=== PATIENT | male | born 1965 | race Caucasian/White ===

== ENCOUNTER 2020-10-10 11:56 | Outpatient (REF) | payer OTHER, SELFPAY | END 2020-10-10 11:57 | disposition home or self-care (01) | LOC: HO.BBR 11:56 | PROVIDERS: Visit Provider Internal Medicine Gastroenterology | DX: Z13.89 Encounter for screening for other disorder (principal) ==

== ENCOUNTER 2020-11-08 11:03 | Outpatient (REF) | payer OTHER, SELFPAY | END 2020-11-08 11:04 | disposition home or self-care (01) | LOC: HO.BBR 11:03 | PROVIDERS: Visit Provider Internal Medicine Gastroenterology | DX: Z13.89 Encounter for screening for other disorder (principal) ==

== ENCOUNTER 2020-11-22 12:01 | Outpatient (REF) | payer OTHER, SELFPAY | END 2020-11-22 12:02 | disposition home or self-care (01) | LOC: HO.BBR 12:01 | PROVIDERS: Visit Provider Internal Medicine Gastroenterology | DX: Z13.89 Encounter for screening for other disorder (principal) ==

== ENCOUNTER 2020-12-06 12:05 | Outpatient (REF) | payer OTHER, SELFPAY | END 2020-12-06 12:06 | disposition home or self-care (01) | LOC: HO.BBR 12:05 | PROVIDERS: Visit Provider Internal Medicine Gastroenterology | DX: Z13.89 Encounter for screening for other disorder (principal) ==

== ENCOUNTER 2021-11-25 12:55 | Outpatient (REF) | payer OTHER, SELFPAY | END 2021-11-25 12:56 | disposition home or self-care (01) | LOC: HO.BBR 12:55 | PROVIDERS: Visit Provider Internal Medicine Gastroenterology | DX: Z13.89 Encounter for screening for other disorder (principal) ==

== ENCOUNTER 2021-12-09 13:04 | Outpatient (REF) | payer OTHER, SELFPAY | END 2021-12-09 13:05 | disposition home or self-care (01) | LOC: HO.BBR 13:04 | PROVIDERS: Visit Provider Internal Medicine Gastroenterology | DX: Z13.89 Encounter for screening for other disorder (principal) ==

== ENCOUNTER 2021-12-25 09:07 | Outpatient (REF) | payer OTHER, SELFPAY | END 2021-12-25 09:08 | disposition home or self-care (01) | LOC: HO.BBR 09:07 | PROVIDERS: Visit Provider Internal Medicine Gastroenterology | DX: Z13.89 Encounter for screening for other disorder (principal) ==

== ENCOUNTER 2022-01-23 08:50 | Outpatient (REF) | payer BC, SELFPAY | END 2022-01-23 08:51 | disposition home or self-care (01) | LOC: HO.BBR 08:50 | PROVIDERS: Visit Provider Internal Medicine Gastroenterology | DX: Z13.89 Encounter for screening for other disorder (principal) ==

== ENCOUNTER 2022-02-05 09:04 | Outpatient (REF) | payer BC, SELFPAY | END 2022-02-05 09:05 | disposition home or self-care (01) | LOC: HO.BBR 09:04 | PROVIDERS: Visit Provider Internal Medicine Gastroenterology | DX: Z13.89 Encounter for screening for other disorder (principal) ==

== ENCOUNTER 2022-03-05 09:55 | Outpatient (REF) | payer BC, SELFPAY | END 2022-03-05 09:56 | disposition home or self-care (01) | LOC: HO.BBR 09:55 | PROVIDERS: Visit Provider Internal Medicine Gastroenterology | DX: Z13.89 Encounter for screening for other disorder (principal) ==

== ENCOUNTER 2022-06-19 07:55 | Outpatient (REF) | payer BC, SELFPAY | END 2022-06-19 07:56 | disposition home or self-care (01) | LOC: HO.BBR 07:55 | PROVIDERS: Visit Provider Internal Medicine Gastroenterology | DX: Z13.89 Encounter for screening for other disorder (principal) ==

== ENCOUNTER 2022-09-03 08:01 | Outpatient (REF) | payer BC, SELFPAY | END 2022-09-03 08:02 | disposition home or self-care (01) | LOC: HO.BBR 08:01 | PROVIDERS: Visit Provider Internal Medicine Gastroenterology | DX: Z13.89 Encounter for screening for other disorder (principal) ==

== ENCOUNTER 2022-09-24 09:59 | Outpatient (REF) | payer BC, SELFPAY | END 2022-09-24 10:00 | disposition home or self-care (01) | LOC: HO.BBR 09:59 | PROVIDERS: Visit Provider Internal Medicine Gastroenterology | DX: Z13.89 Encounter for screening for other disorder (principal) ==

== ENCOUNTER 2023-03-05 13:55 | Outpatient (REF) | payer BC, SELFPAY | END 2023-03-05 13:56 | disposition home or self-care (01) | LOC: HO.BBR 13:55 | PROVIDERS: Visit Provider Internal Medicine | DX: Z13.89 Encounter for screening for other disorder (principal) ==

== ENCOUNTER 2023-04-07 07:59 | Outpatient (REF) | payer BC, SELFPAY | END 2023-04-07 08:00 | disposition home or self-care (01) | LOC: HO.BBR 07:59 | PROVIDERS: PCP Internal Medicine; Visit Provider Internal Medicine | DX: Z13.89 Encounter for screening for other disorder (principal) ==

== ENCOUNTER 2023-11-13 09:05 | Outpatient (REF) | payer BC, SELFPAY | END 2023-11-13 09:06 | disposition home or self-care (01) | LOC: HO.BBR 09:05 | PROVIDERS: PCP Internal Medicine; Visit Provider Internal Medicine | DX: Z13.89 Encounter for screening for other disorder (principal) ==

== ENCOUNTER 2024-03-17 14:02 | Outpatient (REF) | payer BC, SELFPAY | END 2024-03-17 14:03 | disposition home or self-care (01) | LOC: HO.BBR 14:02 | PROVIDERS: PCP Internal Medicine; Visit Provider Internal Medicine | DX: Z13.89 Encounter for screening for other disorder (principal) ==

== ENCOUNTER 2024-04-14 09:02 | Outpatient (REF) | payer BC, SELFPAY | END 2024-04-14 09:03 | disposition home or self-care (01) | LOC: HO.BBR 09:02 | PROVIDERS: PCP Internal Medicine; Visit Provider Internal Medicine | DX: Z13.89 Encounter for screening for other disorder (principal) ==

== ENCOUNTER 2024-05-16 11:54 | Outpatient (REF) | payer BC, SELFPAY | END 2024-05-16 11:55 | disposition home or self-care (01) | LOC: HO.BBR 11:54 | PROVIDERS: PCP Internal Medicine; Visit Provider Internal Medicine | DX: Z13.89 Encounter for screening for other disorder (principal) ==

== ENCOUNTER 2024-06-21 08:00 | Outpatient (REF) | payer BC, SELFPAY ==
--- OUTSIDE RECORDS SUMMARY | 2024-06-21 08:03 | XMS_ITS | Continuity of Care Document ---
Author Organization [facility] [address] [facility] [address] [place] [address] Phone [phone] Care Team Providers Care Patient Registrar Name Role Phone Aakash Brown M.D. Care Team Information Recei theresa [phone] Problems Active Problems Provider Date Type 1 diabetes mellitus Keturah Ramírez M.D. 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 12/15/2022 BD Pen Needle/Short/Ultra-F ine/31G X 8mm31G X 8 mm Misc 1 Four Times A Day Aakash Brown M.D. Freestyle Lite TestStrips Twice A Day Aakash Brown M.D. Rosuvastatin Iccphta20nt Tablets Take 1 Tablet By Mouth Every Day Aakash Brown M.D. Nepfmkahvm58tk Tablets Take 1 Tablet By Mouth Every Day Aakash Brown M.D. Basaglar Rytwtpd064Kitq/ML Solution Pen-Inject 32 Units Subcutaneous Every Day Aakash Brown M.D. Humalog Nbegbhr265Hqzs/ML Solution Pen-Inject Inject 25 Units 3 Times A Day Before Meals Or as Directed Aakash Brown M.D. Vital Signs Date Vital Result Comment 12/15/2022 9:21am BP Systolic 128 mmHg BP Diastolic 78 mmHg Heart Rate 98 /min Height 71 inches 5'11 Weight 224.50 lb BMI (Body Mass Index) 31.3 kg/m2 Results Test Acquired Date Facility Test Result H/L Range N [facility]te Laboratory test finding 12/15/2022 Inhouse Glucose Fingerstick 180 Medical Devices Description No Information Available Encounters Type Date Location Provider Dx Diagnosis Office Visit 12/15/2022 9:15a Main Office Keturah Ramírez M.D. E10.9 Type 1 diabetes mellitus without complications Assessments Date Code Description Provider 12/15/2022 E10.9 Type 1 diabetes mellitus without complications Keturah Ramírez M.D. Plan of Treatment 12/15/2022 - Keturah Ramírez M.D.* E10.9 Type 1 diabetes mellitus without complications * Functional Status Description No Information Available Mental Status Description No Information Available Referrals Refer to Reason for Referral Status Appt Keturah Hodges M.D. Created [address] [place] [address] [address] [place] [address] [phone]
== END 2024-06-21 08:01 | disposition home or self-care (01) ==
LOC: HO.BBR 08:00
PROVIDERS: PCP Internal Medicine; Visit Provider Internal Medicine
DX: Z13.89 Encounter for screening for other disorder (principal)

== ENCOUNTER 2024-07-20 12:25 | Outpatient (REF) | payer BC, SELFPAY ==
--- OUTSIDE RECORDS SUMMARY | 2024-07-20 14:47 | XMS_ITS | Continuity of Care Document ---
Author Organization [facility] [address] [facility] [address] [place] [address] Phone [phone] Care Team Providers Care Director Of Medicare Name Role Phone Aakash Brown M.D. Care Team Information Recei theresa [phone] Problems Active Problems Provider Date Type 1 diabetes mellitus Keturah Ramírez M.D. 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 12/15/2022 BD Pen Needle/Short/Ultra-F ine/31G X 8mm31G X 8 mm Misc 1 Four Times A Day Aakash Brown M.D. Freestyle Lite TestStrips Twice A Day Aakash Brown M.D. Rosuvastatin Bqtqbpi99cj Tablets Take 1 Tablet By Mouth Every Day Aakash Brown M.D. Vwdswtydfz57yj Tablets Take 1 Tablet By Mouth Every Day Aakash Brown M.D. Basaglar Mvzeogh717Zqsd/ML Solution Pen-Inject 32 Units Subcutaneous Every Day Aakash Brown M.D. Humalog Obaljkx636Qmgs/ML Solution Pen-Inject Inject 25 Units 3 Times [...] Referral Status Appt Keturah Hodges M.D. Created [address] [place] [address] [address] [place] [address] [phone]
== END 2024-07-20 12:26 | disposition home or self-care (01) ==
LOC: HO.BBR 12:25
PROVIDERS: PCP Internal Medicine; Visit Provider Internal Medicine
DX: Z13.89 Encounter for screening for other disorder (principal)

== ENCOUNTER 2024-08-17 13:04 | Outpatient (REF) | payer BC, SELFPAY | END 2024-08-17 13:05 | disposition home or self-care (01) | LOC: HO.BBR 13:04 | PROVIDERS: PCP Internal Medicine; Visit Provider Internal Medicine | DX: Z13.89 Encounter for screening for other disorder (principal) ==

== ENCOUNTER 2025-01-25 13:59 | Outpatient (REF) | payer BC, SELFPAY ==
--- OUTSIDE RECORDS SUMMARY | 2025-01-25 14:42 | XMS_ITS | Continuity of Care Document ---
Author Organization [facility] [address] [facility] [address] [place] [address] Phone [phone] Care Team Providers Care State Director Name Role Phone Aakash Brown M.D. Care Team Information Recei theresa [phone] Problems Active Problems Provider Date Type 1 diabetes mellitus Keturah Ramírez M.D. 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 12/15/2022 BD Pen Needle/Short/Ultra-F ine/31G X 8mm31G X 8 mm Misc 1 Four Times A Day Aakash Brown M.D. Freestyle Lite TestStrips Twice A Day Aakash Brown M.D. Rosuvastatin Khgnxos03ps Tablets Take 1 Tablet By Mouth Every Day Aakash Brown M.D. Gdrvhcycyk36lk Tablets Take 1 Tablet By Mouth Every Day Aakash Brown M.D. Basaglar Zdhpapp826Azfm/ML Solution Pen-Inject 32 Units Subcutaneous Every Day Aakash Brown M.D. Humalog Fycfmlb175Wltu/ML Solution Pen-Inject Inject 25 Units 3 Times A Day Before Meals Or as Directed Aakash Brown M.D. Vital Signs Date Vital Result Comment 12/15/2022 9:21am BP Systolic 128 mmHg BP Diastolic 78 mmHg Heart Rate 98 /min Height 71 inches 5'11 Weight 224.50 lb BMI (Body Mass Index) 31.3 kg/m2 Results Test Acquired Date Facility Test Result H/L Range [place]te Glucose Fingerstick 12/15/2022 Inhouse Glucose Fingerstick 180 Medical Devices [...] Referral Status Appt Keturah Hodges M.D. Created [address] [place] [address] [address] [place] [address] [phone]
== END 2025-01-25 14:00 | disposition home or self-care (01) ==
LOC: HO.BBR 13:59
PROVIDERS: PCP Internal Medicine; Visit Provider Internal Medicine
DX: Z13.89 Encounter for screening for other disorder (principal)

== ENCOUNTER 2025-03-01 10:59 | Outpatient (REF) | payer BC, SELFPAY ==
--- OUTSIDE RECORDS SUMMARY | 2025-03-01 11:52 | XMS_ITS | Continuity of Care Document ---
Author Organization [facility] [address] [facility] [address] [place] [address] Phone [phone] Care Team Providers Care Radiology Clerk Name Role Phone Aakash Brown M.D. Care Team Information Recei theresa [phone] Problems Active Problems Provider Date Type 1 diabetes mellitus Keturah Ramírez M.D. 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 12/15/2022 BD Pen Needle/Short/Ultra-F ine/31G X 8mm31G X 8 mm Misc 1 Four Times A Day Aakash Brown M.D. Freestyle Lite TestStrips Twice A Day Aakash Brown M.D. Rosuvastatin Ygfsqwl06cc Tablets Take 1 Tablet By Mouth Every Day Aakash Brown M.D. Bjutquyxgw96kk Tablets Take 1 Tablet By Mouth Every Day Aakash Brown M.D. Basaglar Yvayzcv478Qywi/ML Solution Pen-Inject 32 Units Subcutaneous Every Day Aakash Brown M.D. Humalog Uyzmkol546Gzkn/ML Solution Pen-Inject Inject 25 Units 3 Times [...] Referral Status Appt Keturah Hodges M.D. Created [address] [place] [address] [address] [place] [address] [phone]
== END 2025-03-01 11:00 | disposition home or self-care (01) ==
LOC: HO.BBR 10:59
PROVIDERS: PCP Internal Medicine; Visit Provider Internal Medicine
DX: Z13.89 Encounter for screening for other disorder (principal)

== ENCOUNTER 2025-05-09 10:51 | Outpatient (REF) | payer BC, SELFPAY | END 2025-05-09 10:52 | disposition home or self-care (01) | LOC: HO.BBR 10:51 | PROVIDERS: PCP Internal Medicine; Visit Provider Internal Medicine | DX: Z13.89 Encounter for screening for other disorder (principal) ==